=== PATIENT | female | born 1970 | race Native Hawaiian/Other Pacific Islander ===

== ENCOUNTER 2022-01-29 17:04 | Emergency (ER) | payer OTHER ==
--- NOTE | 2022-01-29 18:44 | ERPHSYRPT ---
- History of Present Illness Time Seen by Provider: 01/29/22 18:30 Source: patient Exam Limitations: no limitations Patient Subjective Stated Complaint: Pt states "I was at the chiropractor getting an adjustment and I think they broke one of my ribs. They taped it but it still hurts allot." Triage Nursing Assessment: PT presented alert and oriented X 3, skin pwd. pt ambulates with an upright steady gait, able to speak in clear full sentences pt has tape noted to her lateral left side, lower ribs. Physician History: This is a 51-year-old white female patient of Dr. Leonard who routinely sees a chiropractor in the last few weeks to help with her back pain. Today, the chiropractor tried some different maneuvers to help relieve her back pain. Patient felt it was much more severe and is concerned that there is left lower rib fractures present. The onset was acute during manipulation. Timing/Duration: today Method of Injury: other (Chiropractic manipulation) Quality: sharp Back Pain Location: lumbar spine Severity of Pain-Max: mild (To moderate) Severity of Pain-Current: mild (To moderate) Modifying Factors: Improves With: movement Associated Symptoms: lower back pain, other (Left rib pain) Previous symptoms: no prior history Allergies/Adverse Reactions: Sulfa (Sulfonamide Antibiotics) Allergy (Intermediate, Verified 01/29/22 18:05) Hives Home Medications: Esomeprazole Magnesium [Nexium 24Hr] 20 mg PO DAILY 01/29/22 [History] Fexofenadine HCl [Ellen Allergy] 60 mg PO DAILY 01/29/22 [History] Paroxetine HCl ER 12.5 mg [Paroxetine ER 12.5 mg Tablet] 12.5 mg PO DAILY 01/29/22 [History] Hx Tetanus, Diphtheria Vaccination/Date Given: No Hx Influenza Vaccination/Date Given: No Hx Pneumococcal Vaccination/Date Given: No Immunizations Up to Date: Yes Travel Risk - International Travel Have you traveled outside of the country in past 3 weeks: No - Coronavirus Screening Are you exhibiting any of the following symptoms?: No Close contact with a COVID-19 positive Pt in past 14-21 Days: No - Vaccine Status Have you recieved a Covid-19 vaccination: Yes Jewel Inserter: Moderna - Vaccination Dates Date of 2cond Vaccination (if applicable): 2020 - Review of Systems Constitutional: No Symptoms Eyes: No Symptoms Ears, Nose, & Throat: No Symptoms Respiratory: No Symptoms Cardiac: No Symptoms Abdominal/Gastrointestinal: No Symptoms Genitourinary Symptoms: No Symptoms Musculoskeletal: Other (Left rib pain lower aspect) Skin: No Symptoms Neurological: No Symptoms Psychological: No Symptoms Endocrine: No Symptoms Hematologic/Lymphatic: No Symptoms Immunological/Allergic: No Symptoms All Other Systems: Reviewed and Negative - Past Medical History Pertinent Past Medical History: Yes GI Medical History: GERD Psycho-Social History: Anxiety - Past Surgical History Past Surgical History: Yes Other Surgical History: tonsils. appi. c section. dental extraction - Social History Smoking Status: Current every day smoker How long have you smoked: years Exposure to second hand smoke: Yes Drug Use: none Patient Lives Alone: No - Nursing Vital Signs Nursing Vital Signs: Initial Vital Signs Temperature 98.0 F 01/29/22 17:59 Pulse Rate 84 01/29/22 17:59 Respiratory Rate 20 01/29/22 17:59 Blood Pressure 146/105 01/29/22 17:59 O2 Sat by Pulse Oximetry 98 01/29/22 17:59 Pain Scale Pain Intensity 9 - Physical Exam General Appearance: no apparent distress, alert, anxiety, obese Eye Exam: PERRL/EOMI, eyes nml inspection Ears, Nose, Throat Exam: normal ENT inspection, moist mucous membranes Neck Exam: normal inspection, non-tender, supple, full range of motion Respiratory Exam: airway intact, No chest tenderness, No respiratory distress Gastrointestinal Exam: No tenderness Pelvic Exam: not done Rectal Exam: not done Back Exam: normal inspection, normal range of motion, No CVA tenderness, No vertebral tenderness Extremity Exam: normal inspection, normal range of motion, pelvis stable Neurologic Exam: alert, oriented x 3, cooperative, press hand II-XII nml as tested, normal mood/affect, nml cerebellar function, nml station & gait, sensation nml Skin Exam: normal color, warm, dry Lymphatic Exam: No adenopathy SpO2 Interpretation: normal SpO2: 98 O2 Delivery: Room Air - Course Nursing assessment & vital signs reviewed: Yes Ordered Tests: Active Orders 24 hr Category Date Time Status RIBS UNILATERAL Stat Exams 01/29/22 18:18 Ordered - Progress Progress: improved, pain not gone completely Counseled pt/family regarding: diagnosis, need for follow-up, rad results - Departure Departure Disposition: Home Clinical Impression: Rib pain on left side Condition: Stable Critical Care Time: No Referrals: LEE LEONARD DO [Primary Care Provider] - Follow up/PCP as directed Additional Instructions: Take medication as prescribed. Prescriptions: Oxycodone HCl/Acetaminophen [Percocet 5-325 mg Tablet] 1 each PO Q8H PRN PRN #6 tablet MDD 3 PRN Reason: Moderate To Severe Pain Prednisone 10 mg [Deltasone 10 mg] 10 mg PO TID #12 tablet Orphenadrine Citrate 100 mg [Norflex 100 MG Tablet] 100 mg PO BID #10 tab
[2022-01-29 18:54] VITALS: BP 138/98; PULSE 92; O2SAT 96
--- NOTE | 2022-01-30 08:39 | XRAY ---
Indication: Pain following chiropractor treatment. Comparison: None 2 view left ribs demonstrates mild osteopenia, mild degenerative changes throughout thoracolumbar spine, and remote T12-L1 compression fractures with approximately 25-50% height loss. No other bony, articular, or soft tissue abnormalities.
== END 2022-01-29 18:55 | disposition home or self-care (01) ==
LOC: ED 17:04
DX: R07.81 Pleurodynia (principal); M54.50 Low back pain, unspecified; Z72.0 Tobacco use; Z79.899 Other long term (current) drug therapy; Z79.891 Long term (current) use of opiate analgesic; Z79.52 Long term (current) use of systemic steroids
CPT/HCPCS: 71100; 99283

== ENCOUNTER 2022-08-22 13:39 | Day surgery (SDC) | payer OTHER ==
[2022-08-22] MEDS ORDERED: BUPIVACAINE 0.5% VIAL IJ ONE (13:40)
[2022-08-22] MEDS ORDERED: Depo-Medrol 40 MG/ML IM ONE (13:40)
[2022-08-22 14:33] LABS: HCG,QUALITATIVE URINE NEGATIVE (Negative)
[2022-08-22] MEDS ORDERED: Pepcid 20 MG VIAL IV ONE (15:01)
[2022-08-22] MEDS ORDERED: Zofran 4 MG/2 ML VIAL ONE (15:01)
[2022-08-22] MEDS ORDERED: Reglan 10 MG/2 ML ONE (15:02)
[2022-08-22] MEDS ORDERED: DIPRIVAN 200 MG/20 ML IV ONE (15:50)
[2022-08-22] MEDS ORDERED: Lactated Ringers 1,000 ML IV ONE (15:53)
--- NOTE | 2022-08-22 16:19 | XRAY ---
Indication: Bilateral L4-S1 MBB. Intraoperative fluoroscopy provided for 13 seconds. Single digital spot image submitted for interpretation demonstrates posterior needle tips projecting over the expected left and right L4-S1 nerve roots. Correlate with intraoperative findings/report.
--- NOTE | 2022-08-22 16:30 | XRAY ---
13 seconds fluoroscopy time in surgery for bilateral L4-S1 MBB.
== END 2022-08-22 16:20 | disposition home or self-care (01) ==
LOC: SDC-PAIN 13:39
PROVIDERS: ATTEND Psychiatry & Neurology Pain Medicine
DX: M47.816 Spondylosis without myelopathy or radiculopathy, lumbar region (principal); Z79.899 Other long term (current) drug therapy
CPT/HCPCS: 64493; 64494; 72020; 77002; 81025; J1030; J2405; J2704

== ENCOUNTER 2023-01-09 11:24 | Day surgery (SDC) | payer OTHER ==
[2023-01-09] MEDS ORDERED: Depo-Medrol 40 MG/ML IM ONE (11:25)
[2023-01-09] MEDS ORDERED: BUPIVACAINE 0.5% VIAL IJ ONE (11:25)
[2023-01-09 11:51] LABS: HCG URINE TEST NEGATIVE (NEGATIVE)
[2023-01-09] MEDS ORDERED: Reglan 10 MG/2 ML ONE (11:51)
[2023-01-09] MEDS ORDERED: Pepcid 20 MG VIAL IV ONE (11:51)
[2023-01-09] MEDS ORDERED: DIPRIVAN 200 MG/20 ML IV ONE ×2 (12:42→12:51)
[2023-01-09] MEDS ORDERED: Lactated Ringers 1,000 ML IV ONE (15:06)
--- NOTE | 2023-01-09 19:06 | XRAY ---
Indication: Bilateral L4-S1 MBB. Intraoperative fluoroscopy provided for 17 seconds. Single digital spot image submitted for interpretation demonstrates posterior needle tips projecting over the expected left and right L4-S1 nerve roots. Correlate with intraoperative findings/report.
--- NOTE | 2023-01-09 19:26 | XRAY ---
17 seconds of fluoroscopy was used in surgery for a bilateral L4-S1 MBB.
== END 2023-01-09 13:12 | disposition home or self-care (01) ==
LOC: SDC-PAIN 11:24
PROVIDERS: ATTEND Psychiatry & Neurology Pain Medicine
DX: M47.816 Spondylosis without myelopathy or radiculopathy, lumbar region (principal); Z79.899 Other long term (current) drug therapy
CPT/HCPCS: 64493; 64494; 72020; 77002; 81025; J1030; J2704

== ENCOUNTER 2023-03-06 07:07 | Day surgery (SDC) | payer OTHER ==
[2023-03-06] MEDS ORDERED: LIDOCAINE HCL 1% 50 MG/5 ML VL PF IJ ONE (07:08)
[2023-03-06] MEDS ORDERED: BUPIVACAINE 0.5% VIAL IJ ONE (07:08)
[2023-03-06] MEDS ORDERED: Depo-Medrol 40 MG/ML IM ONE (07:08)
[2023-03-06 07:17] LABS: HCG URINE TEST NEGATIVE (NEGATIVE)
[2023-03-06] MEDS ORDERED: DIPRIVAN 200 MG/20 ML IV ONE (08:05)
[2023-03-06] MEDS ORDERED: Xylocaine-Mpf 2% 5 Ml Vial ONE (08:05)
[2023-03-06] MEDS ORDERED: Lactated Ringers 1,000 ML IV ONE (08:51)
--- NOTE | 2023-03-06 10:17 | XRAY ---
Indication: Left L4-S1 RFA. Intraoperative fluoroscopy provided for 42 seconds. 3 digital spot image submitted for interpretation demonstrates posterior needle tips projecting over the expected left L4-S1 nerve roots. Correlate with intraoperative findings/report.
--- NOTE | 2023-03-06 10:41 | XRAY ---
42 seconds of fluoroscopy was used in surgery for a left L4-S1 RFA.
== END 2023-03-06 08:42 | disposition home or self-care (01) ==
LOC: SDC-PAIN 07:07
PROVIDERS: ATTEND Psychiatry & Neurology Pain Medicine
DX: M47.816 Spondylosis without myelopathy or radiculopathy, lumbar region (principal); Z79.899 Other long term (current) drug therapy
CPT/HCPCS: 64635; 64636; 72100; 77002; 81025; J1030; J2001; J2704

== ENCOUNTER 2023-03-13 07:06 | Day surgery (SDC) | payer OTHER ==
[2023-03-13] MEDS ORDERED: BUPIVACAINE 0.5% VIAL IJ ONE (07:07)
[2023-03-13] MEDS ORDERED: Depo-Medrol 40 MG/ML IM ONE (07:07)
[2023-03-13] MEDS ORDERED: LIDOCAINE HCL 1% 50 MG/5 ML VL PF IJ ONE (07:07)
[2023-03-13 07:16] LABS: HCG URINE TEST NEGATIVE (NEGATIVE)
[2023-03-13] MEDS ORDERED: Xylocaine-Mpf 2% 5 Ml Vial ONE (07:57)
[2023-03-13] MEDS ORDERED: Zofran 4 MG/2 ML VIAL ONE (07:57)
[2023-03-13] MEDS ORDERED: DIPRIVAN 200 MG/20 ML IV ONE ×2 (07:57→08:15)
--- NOTE | 2023-03-13 10:18 | XRAY ---
Indication: Right L4-S1 RFA. Intraoperative fluoroscopy provided for 37 seconds. 4 digital spot images submitted for interpretation demonstrates posterior needle tips projecting over the expected right L4-S1 nerve roots. Correlate with intraoperative findings/report.
[2023-03-13] MEDS ORDERED: Lactated Ringers 1,000 ML IV ONE (13:07)
--- NOTE | 2023-03-13 13:30 | XRAY ---
37 seconds of fluoroscopy was used in surgery for a right L4-S1 RFA.
== END 2023-03-13 08:40 | disposition home or self-care (01) ==
LOC: SDC-PAIN 07:06
PROVIDERS: ATTEND Psychiatry & Neurology Pain Medicine
DX: M47.816 Spondylosis without myelopathy or radiculopathy, lumbar region (principal); Z79.899 Other long term (current) drug therapy
CPT/HCPCS: 64635; 64636; 72100; 77002; 81025; J1030; J2001; J2405; J2704

== ENCOUNTER 2023-07-25 09:52 | Day surgery (SDC) | payer OTHER ==
--- NOTE | 2023-07-24 10:43 | HP ---
DATE OF SURGERY: 07/25/2023 HISTORY OF PRESENT ILLNESS: The patient is a 52-year-old who presents with cholelithiasis. She had some severe pain recently. She does get some bloating and gas with eating. She does have nausea. She is on Ezel for back pain. She had an ultrasound showing some cholelithiasis and fatty liver. Her HIDA was fine although it is 96%. It looks like we recently did endoscopy on her and now we are proceeding with cholecystectomy. PAST MEDICAL HISTORY: Heartburn, allergic rhinitis, asthma, gastroesophageal reflux disease, depression, gout. PAST SURGICAL HISTORY: Teeth extraction. Tonsillectomy. section. Appendectomy. ALLERGIES: SULFA. MEDICATIONS: Allopurinol, omeprazole, hydrocodone, duloxetine, gabapentin, allopurinol, cyclobenzaprine, albuterol. FAMILY HISTORY: Breast cancer. Colon cancer. SOCIAL HISTORY: Current smoker, occasional alcohol. REVIEW OF SYSTEMS: CONSTITUTIONAL: Denies fever or chills. CHEST: Denies shortness of breath. CVS: Denies chest pain. ABDOMEN: Reports abdominal pain. PHYSICAL EXAMINATION: GENERAL: No acute distress. CHEST: Nonlabored. No shortness of breath. CVS: Regular rate and rhythm. IMPRESSION: Cholelithiasis. PLAN: Laparoscopic cholecystectomy with Dr. Candelario Quinones. As dictated by Thelma Mancera NP.
[2023-07-25 10:10] LABS: HCG URINE TEST NEGATIVE (NEGATIVE)
[2023-07-25] MEDS ORDERED: Transderm Scop 1.5MG Patch TOP PRN (10:11)
[2023-07-25] MEDS ORDERED: Reglan 10 MG/2 ML IV ONE (10:11)
[2023-07-25] MEDS ORDERED: Pepcid 20 MG VIAL IV ONE ×2 (10:11→10:27)
[2023-07-25] MEDS ORDERED: Versed 2 MG/2 ML Injection ONE (10:29)
[2023-07-25] MEDS ORDERED: DIPRIVAN 200 MG/20 ML IV ONE (10:29)
[2023-07-25] MEDS ORDERED: SUBLIMAZE 100 MCG/2 ML ONE ×3 (10:29→12:44)
[2023-07-25] MEDS ORDERED: Zemuron 100 MG/10 ML ONE (10:29)
[2023-07-25] MEDS ORDERED: Lactated Ringers 1,000 ML IV SCH (10:30)
[2023-07-25] MEDS ORDERED: TORAdol 30 mg Injection ONE (10:31)
[2023-07-25] MEDS ORDERED: BRIDION 200MG/2ML IV ONE (10:31)
[2023-07-25] MEDS ORDERED: Decadron 4 MG INJ ONE (10:31)
[2023-07-25] MEDS ORDERED: Zofran 4 MG/2 ML VIAL ONE (10:31)
[2023-07-25] MEDS ORDERED: MEFOXIN 2 GM PREMIX** 2 GM/50 ML ML IV SCH (11:00)
[2023-07-25] MEDS ORDERED: Sensorcaine 0.25% 10 ML ONE (11:09)
[2023-07-25] MEDS ORDERED: Lactated Ringers 1,000 ML IV ONE (11:21)
[2023-07-25] MEDS ORDERED: DILAUDID 2 MG INJECTION ONE (11:46)
[2023-07-25] MEDS ORDERED: TRANDATE 20 MG/4 ML SYRINGE IV ONE (11:55)
--- NOTE | 2023-07-25 12:59 | OP ---
SURGERY DATE/TIME: 07/25/2023 1107 PREOPERATIVE DIAGNOSIS: Symptomatic cholelithiasis. POSTOPERATIVE DIAGNOSIS: Acute on chronic cholecystitis/cholelithiasis. PROCEDURE: Laparoscopic cholecystectomy. SURGEON: Dr. Candelario Quinones. ANESTHESIA: General. COMPLICATIONS: None. CONDITION: Stable. INDICATIONS: The patient presents for cholecystectomy. DESCRIPTION OF PROCEDURE AND FINDINGS: Taken to surgery. General anesthetic, routine prep and drape. Veress needle inserted. Opening pressure of 1, insufflating pressure 14. Four - 5's. Satisfactory visualization. Gallbladder is large. Gallbladder is thick walled, seemed like there is an impacted stone in the infundibulum. Infundibulum dissected. Cystic duct just slightly broad under infundibulum. There were some spiral clouds of Heister here. Cystic artery area defined. Dunlap of [place] was clear. At this time the cystic duct was taken against the infundibulum with stapler device and completely off of the common bile duct. Coming up about 2 cm, the area of the cystic artery was taken with 2.5 vascular cartridge. Gallbladder rolled out of gallbladder fossa. Gallbladder delivered through upper abdominal port. Upper abdominal port closed with 0 Vicryl. Surgicel was placed in the gallbladder fossa. The field was dry. CO2 ex-sufflated. Skin closed with harrison. Sterile dressing applied. The patient tolerated the procedure satisfactorily.
[2023-07-25] MEDS ORDERED: Hydromorphone 1 mg/ml Injection ONE (13:08)
[2023-07-25 13:36] VITALS: RESP 16
[2023-07-25 14:12] VITALS: BP 152/91; PULSE 87; O2SAT 94
[2023-07-25 15:32] VITALS: TEMP 98
== END 2023-07-25 14:50 | disposition home or self-care (01) ==
LOC: SDC 09:52
PROVIDERS: ATTEND Surgery
DX: K81.2 Acute cholecystitis with chronic cholecystitis (principal); Z80.3 Family history of malignant neoplasm of breast; Z80.0 Family history of malignant neoplasm of digestive organs
CPT/HCPCS: 81025; J0694; J1100; J1170; J1885; J2250; J2405; J2704; J3010; A9270-GY

== ENCOUNTER 2024-07-08 13:14 | Day surgery (SDC) | payer OTHER ==
[2024-07-08] MEDS ORDERED: BUPIVACAINE 0.5% VIAL IJ ONE (13:15)
[2024-07-08] MEDS ORDERED: LIDOCAINE HCL 1% AMPUL 5 ML IJ ONE (13:15)
[2024-07-08] MEDS ORDERED: Depo-Medrol 40 MG/ML IM ONE (13:15)
[2024-07-08] MEDS ORDERED: Zofran 4 MG/2 ML VIAL ONE (14:17)
[2024-07-08 14:38] LABS: HCG URINE TEST NEGATIVE (NEGATIVE)
[2024-07-08] MEDS ORDERED: DIPRIVAN 200 MG/20 ML IV ONE ×2 (15:16→15:26)
--- NOTE | 2024-07-08 19:02 | XRAY ---
Indication: Bilateral hip and greater trochanter bursa injection. Intraoperative fluoroscopy provided for 34 seconds. 4 digital spot image submitted for interpretation demonstrates needle tips projecting lateral to left/right femur necks and greater trochanters. Small amount of contrast injected for all needle tip placement. Correlate with intraoperative findings/report.
--- NOTE | 2024-07-08 19:25 | XRAY ---
34 seconds of fluoroscopy was used in surgery for a bilateral intra-articular hip and greater trochanteric bursa injection.
== END 2024-07-08 15:50 | disposition home or self-care (01) ==
LOC: SDC-PAIN 13:14
PROVIDERS: ATTEND Psychiatry & Neurology Pain Medicine
DX: M16.0 Bilateral primary osteoarthritis of hip (principal); M70.62 Trochanteric bursitis, left hip; M70.61 Trochanteric bursitis, right hip
CPT/HCPCS: 20610; 73522; 77002; 81025; J2405; J2704; Q9966

== ENCOUNTER 2024-12-16 13:18 | Day surgery (SDC) | payer BC ==
[2024-12-16] MEDS ORDERED: LIDOCAINE HCL 1% 50 MG/5 ML VL IJ ONE (13:19)
[2024-12-16] MEDS ORDERED: BUPIVACAINE 0.5% VIAL IJ ONE (13:19)
[2024-12-16 14:11] LABS: HCG URINE TEST NEGATIVE (NEGATIVE)
[2024-12-16] MEDS ORDERED: propofoL IV ONE (15:34)
[2024-12-16] MEDS ORDERED: Lactated Ringers 1,000 ML IV ONE (16:38)
--- NOTE | 2024-12-16 21:10 | XRAY ---
Indication: Right L4-S1 RFA. Intraoperative fluoroscopy provided for 23 seconds. 5 digital spot image submitted for interpretation demonstrates posterior needle tips projecting over expected right L4-S1 nerve roots. Correlate with intraoperative findings/report.
--- NOTE | 2024-12-16 21:22 | XRAY ---
23 seconds of fluoroscopy was used in surgery for a right L4-S1 RFA.
== END 2024-12-16 16:07 | disposition home or self-care (01) ==
LOC: SDC-PAIN 13:18
PROVIDERS: ATTEND Psychiatry & Neurology Pain Medicine
DX: M47.817 Spondylosis without myelopathy or radiculopathy, lumbosacral region (principal)
CPT/HCPCS: 64635; 64636; 72100; 81025; J2704